=== PATIENT | female | born 1950 | race Two or more races ===

== ENCOUNTER 2020-05-17 07:23 | Outpatient (CLI) | payer OTHER | END 2020-05-17 08:42 | disposition home or self-care (01) | LOC: TOM 07:23 | PROVIDERS: ATTEND Internal Medicine Gastroenterology | DX: N20.0 Calculus of kidney (principal); Z12.11 Encounter for screening for malignant neoplasm of colon; K57.90 Diverticulosis of intestine, part unspecified, without perforation or abscess without bleeding ==